=== PATIENT | female | born 1985 | race Caucasian/White ===

== ENCOUNTER → 2017-11-19 | Outpatient (CLI) | payer OTHER ==
[~2017-11-19] MED LIST: ADVA500A INH; ALBU0.08 NEB; ALBUAER3 INH; BUDE0.25 NEB; CYCL10TA PO; HYDR-3580 PO; INDO50CA PO; IPRASOL INH; LEVOTAB PO; METO50TA PO; PROM25TA10 PO; PROP80C PO; SUMA100T2 PO; TOPI100 PO; TRAZ50TA12 PO; ZOFR4TAB PO
[2017-11-19 13:24] LABS: AUTOMATED NEUTROPHIL # 3.2 TH/MM3 (1.8-7.7); BASOPHIL # 0.1 TH/MM3 (0-0.2); BASOPHIL % 1.9 % (0.0-2.0); EOSINOPHIL # 0.3 TH/MM3 (0-0.4); EOSINOPHIL % 5.6 % (0.0-4.0); HEMOGLOBIN 13.4 GM/DL (11.6-15.3); LYMPH % 35.2 % (9.0-44.0); LYMPHOCYTE # 2.2 TH/MM3 (1.0-4.8); MEAN CELL VOLUME 96.7 FL (80.0-100.0); MEAN CORPUSCULAR HEMOGLOBIN 33.1 PG (27.0-34.0); MEAN CORPUSCULAR HGB CONC 34.3 % (32.0-36.0); MEAN PLATELET VOLUME 7.4 FL (7.0-11.0); MONOCYTE # 0.4 TH/MM3 (0-0.9); NEUT % 50.3 % (16.0-70.0); PLATELET COUNT 291 TH/MM3 (150-450); RED BLOOD COUNT 4.03 MIL/MM3 (4.00-5.30); RED CELL DISTRIBUTION WIDTH 11.8 % (11.6-17.2); WHITE BLOOD COUNT 6.2 TH/MM3 (4.0-11.0)
[2017-11-19 13:25] LABS: BILIRUBIN, URINE NEG (NEG); BLOOD, URINE SMALL (NEG); GLUCOSE,URINE NEG (NEG); KETONE, URINE 15 mg/dL (NEG); NITRITE,URINE NEG (NEG); URINE COLOR YELLOW (YELLW/STRAW); URINE LEUKOCYTE ESTERASE NEG (NEG)
[2017-11-19 13:30] LABS: BACTERIA, URINE MOD /hpf; RBC, URINE 0-3 /hpf (0-3)
[2017-11-19 13:31] LABS: CALCIUM OXALATE CRYSTALS,URINE FEW /hpf
== END ==
LOC: PHPRE 12:33
PROVIDERS: ATTEND Obstetrics & Gynecology
DX: Z01.812 Encounter for preprocedural laboratory examination (principal); R82.99 Other abnormal findings in urine
CPT/HCPCS: 36415; 81001; 85025; 86850; 86900; 86901; 86920; 87086

== ENCOUNTER → 2017-11-21 | Day surgery (SDC) | payer OTHER ==
[~2017-11-21] VITALS: Ht 172.7 cm; Wt 75.0 kg
[~2017-11-21] MED LIST changes: +CHLORHEXIDINE GLUCONATE 2 % 1 PACK (2 CLOTHS) TOPICAL PRN; +CLINDAMYCIN 900 MG/NS PREMIX 50 ML IV ONE; +CLINDAMYCIN 900 MG/NS PREMIX 50 ML IV PRN; +DEXAMETHASONE SOD PHOS 4 MG/ML VIAL IV ONE; +GENTAMICIN IV PRN; +GLYCOPYRROLATE 0.6 MG/3 ML SYRINGE IV PUSH ONE; +KETOROLAC TROMETHAMINE 30 MG/ML (IVP) VIAL IV PUSH ONE; +LACTATED RINGER'S 1000 ML INJ 1,000 ML IV ONE; +LACTATED RINGER'S 1000 ML IV PRN; +LIDOCAINE HCL 1% PF 5 ML SYRINGE OTHER ONE; +METOPROLOL TARTRATE 25 MG TAB PO PRN; +MIDAZOLAM HCL 2 MG/2 ML VIAL ONE; +MORPHINE SULFATE 4 MG/ML INJ ONE; +NEOSTIGMINE 3 MG/3 ML SYR IV ONE; +ONDANSETRON HCL 4 MG/2 ML VIAL IV PUSH ONE; +PROMETHAZINE INJ 25 MG/ML VIAL ONE; +PROPOFOL 200 MG/20 ML AMP IV ONE; +ROCURONIUM INJ 50 MG/5 ML VIAL IV ONE; +SODIUM CHLORID 0.9% 500 ML IV PRN; +SODIUM CHLORIDE 0.9% IV PRN; +fentaNYL CITRATE 250 MCG/5 ML AMP ONE; +oxyCODONE/ACETAMINOPHEN 5 MG/325 MG TAB ONE
[2017-11-21 10:06] VITALS: PULSE 57
--- NOTE | 2017-11-21 10:16 | PD.OP ---
July Noonan [facility] Operative Report Date of Surgery: Nov 21, 2017 Preoperative Diagnosis: (1) Endometriosis determined by laparoscopy (2) Menorrhagia with irregular cycle Postoperative Diagnosis: (1) Menorrhagia with irregular cycle Procedure: laparoscopic assisted supracervical hysterectomy Bilateral salpingectomy Right oophorectomy Anesthesia: KELLY Law Surgeon: Marie Villatoro Social Worker(s): Keegan Resident Surgeon: n/a Operation and Findings: Indications: [-This 32 y/o has had previous diagnosis and treatment of endometriosis by laparoscopy. She has had persistent RLQ pain since then and progressive menorrhagia. She has a normal pap smear and no history of abnormal.] Findings: [-There was previous salpingectomy, removing the fibrial portion of both tubes. The pelvis was free of endometriosis or adhesive disease. There were love present around the appendectomy site and scattered in the pelvic and cul de sac. The ovaries looked normal bilaterally. The abdomen was otherwise normal to laparoscopic view. Procedure: The patient was taken to the operating room and general anesthesia was administered with intubation. The patient was then positioned in low stirrups, and after prep and drape a Ponce catheter was placed. An open-sided speculum was placed and the anterior lip of the cervix was grasped with a tenaculum and the HUMI was placed in the uterus. The 12mm trocar was placed in the umbilicus after insufflation with a Veress needle. Then under direct visualization and using transillumination to avoid major blood vessels, 5mm ports were placed in the right and left lower quadrants. The scope was used with a grasper to note the findings described above. Then using the Harmonic scalpel, the round ligaments were divided, The incision was extended anteriorly from side to side and bladder flap was created. The tubes were from the ovaries, again with the harmonic, and then removed with the uterus when morcellated. as withdrawn from the pelvis as specimen. The right ovary was from the pelvic sidewall by transection of the infundibulopelvic ligament. The broad ligaments were then divided with harmonic scalpel starting at the utero-ovarian ligament, proceeding down to the junction of the cervix and the uterus. Then using a "drilling" technique, the uterus was divided from the cervix. The morcellator was the used to morcellate the uterus and remove it. The right ovary was also removed, intact.The suction-aspnet developer was used throughout the case, and employed at the end of the case to check each pedicle, the ovaries and to irrigate out any remaining clots and debris. The case being complete, the pneumoperitoneum was released, the ports were removed, and the umbilical incision was closed on the fascia with 0 vicryl. 4-0 Monocryl was used subcuticularly on the skin edges, followed by sealing with Dermabond. The patient was awakened and taken to the recovery room awake and breathing on her own. She tolerated the procedure well. Sponge, needle and instrument counts were correct. Marie Villatoro MD Nov 21, 2017 10:16
[2017-11-21 12:25] VITALS: BP 109/65; PULSE 81; RESP 16; TEMP 97.9; O2SAT 100
== END | disposition home or self-care (01) ==
LOC: PHSDC 06:21 → EDUNIT# 07:30
PROVIDERS: ATTEND Obstetrics & Gynecology
DX: N92.0 Excessive and frequent menstruation with regular cycle (principal); N70.11 Chronic salpingitis; N83.01 Follicular cyst of right ovary
CPT/HCPCS: 00840; 58542; 88307; C1782; J2250; J2270; J2550; J3010; J7120; J1100; J1885; J2405; J2710